=== PATIENT | female | born 1970 | race Caucasian/White ===

== ENCOUNTER 2023-08-07 21:26 | Emergency (ER) | payer MEDICAID ==
[~2023-08-07] VITALS: Ht 157.5 cm; Wt 47.7 kg
[~2023-08-07 21:26] MED LIST: ADV50500 INH; ALBU18HF2 IH; ASPI-612 PO; CARI350T PO; CLOP75TA34 PO; COM5T PO; DIAZ5TAB22 PO; DILT-94 PO; FLUO20CA39 PO; HYDR1TAB PO; TIOT18CA7 IH
[2023-08-07 21:50] VITALS: BP 141/66; PULSE 100; RESP 18; TEMP 98.5; O2SAT 94
[2023-08-07 22:13] LABS: BASOPHILS % (AUTO) 0.2 % (0-1); EOSINOPHILS % (AUTO) 0.1 % (0-6); HEMATOCRIT 40.3 % (35.0-45.0); HEMOGLOBIN 13.7 g/dl (12.0-16.0); LYMPHOCYTES # (AUTO) 0.6 X10'3 (1.1-4.8); LYMPHOCYTES % (AUTO) 4.8 % (21-51); MEAN CORPUSCULAR HEMOGLOBIN 29.9 PG (27.0-31.0); MEAN CORPUSCULAR HGB CONC 33.9 g/dL (33.0-36.5); MEAN CORPUSCULAR VOLUME 88.1 FL (78-98); MEAN PLATELET VOLUME 8.2 FL (7.4-10.4); MONOCYTES # (AUTO) 0.4 X10'3 (0-0.9); MONOCYTES % (AUTO) 2.7 % (2-12); NEUTROPHILS # (AUTO) 12.3 X10'3 (1.8-7.7); NEUTROPHILS % (AUTO) 92.2 % (42-75); PLATELET COUNT 298 X10'3 (140-440); RED BLOOD COUNT 4.58 X10'6 (4.20-5.60); RED CELL DISTRIBUTION WIDTH 13.9 % (11.5-14.5); WHITE BLOOD COUNT 13.3 X10'3 (4.5-11.0)
[2023-08-07 22:49] LABS: PRO BRAIN NATRIURETIC PEPTIDE < 30 PG/ML (0-125)
[2023-08-08] MEDS ORDERED: ONDA4TAB12 PO (05:29)
[2023-08-08] MEDS ORDERED: METR-159 PO (05:29)
[2023-08-08] MEDS ORDERED: LEVO-65 PO (05:29)
== END 2023-08-08 01:33 | disposition left against medical advice (07) ==
LOC: ER 21:27
DX: R07.89 Other chest pain (principal); R11.10 Vomiting, unspecified; R06.00 Dyspnea, unspecified; Z53.21 Procedure and treatment not carried out due to patient leaving prior to being seen by health care provider
CPT/HCPCS: 36415; 83880; 84484; 85025; 93005; 99281

== ENCOUNTER 2023-08-08 02:48 | Emergency (ER) | payer MEDICAID ==
[~2023-08-08] VITALS: Ht 157.5 cm; Wt 47.7 kg
[2023-08-08] MEDS: ondansetron/PF 4mg/2ml inj IV ONE (03:00)
[2023-08-08 03:10] VITALS: TEMP 98.6
[2023-08-08 03:43] LABS: BASOPHILS % (AUTO) 0.2 % (0-1); EOSINOPHILS % (AUTO) 0.3 % (0-6); HEMATOCRIT 38.8 % (35.0-45.0); HEMOGLOBIN 12.9 g/dl (12.0-16.0); LYMPHOCYTES # (AUTO) 1.2 X10'3 (1.1-4.8); LYMPHOCYTES % (AUTO) 9.4 % (21-51); MEAN CORPUSCULAR HEMOGLOBIN 29.4 PG (27.0-31.0); MEAN CORPUSCULAR HGB CONC 33.3 g/dL (33.0-36.5); MEAN CORPUSCULAR VOLUME 88.5 FL (78-98); MEAN PLATELET VOLUME 8.2 FL (7.4-10.4); MONOCYTES # (AUTO) 0.7 X10'3 (0-0.9); MONOCYTES % (AUTO) 5.7 % (2-12); NEUTROPHILS % (AUTO) 84.4 % (42-75); PLATELET COUNT 285 X10'3 (140-440); RED BLOOD COUNT 4.38 X10'6 (4.20-5.60); RED CELL DISTRIBUTION WIDTH 13.7 % (11.5-14.5)
[2023-08-08 03:53] LABS: ALANINE AMINOTRANSFERASE 19 U/L (12-78); ALBUMIN 3.2 G/DL (3.4-5.0); ALKALINE PHOSPHATASE 46 IU/L (46-116); ANION GAP 5 (8-16); ASPARTATE AMINO TRANSFERASE 13 U/L (10-37); BILIRUBIN,TOTAL 0.3 MG/DL (0.1-1.0); BLOOD UREA NITROGEN 7 MG/DL (7-18); BUN/CREATININE RATIO 13.5 (10.0-20.0); CALCIUM 8.9 MG/DL (8.5-10.1); CHLORIDE 98 MMOL/L (99-107); CREATININE 0.52 MG/DL (0.40-0.90); GLUCOSE 134 MG/DL (70-104); LIPASE 39 U/L (16-77); POTASSIUM 3.5 MMOL/L (3.5-5.1); SODIUM 137 MMOL/L (135-145); TOTAL CARBON DIOXIDE 34.3 MMOL/L (24-32); TOTAL PROTEIN 6.5 G/DL (6.4-8.2); eCRCL 94 ML/MIN; eGFR > 90 ML/MIN
[2023-08-08] MEDS: morphine 4 MG/ML inj SYRINge IV ONE (03:58)
[2023-08-08] MEDS: normal saline 1000ml 1,000 ML IV ONE (03:58)
[2023-08-08] MEDS ORDERED: ONDA4TAB12 PO (05:29)
[2023-08-08] MEDS ORDERED: METR-159 PO (05:29)
[2023-08-08] MEDS ORDERED: LEVO-65 PO (05:29)
[2023-08-08] MEDS: metroNIDAZOLE-Flagyl 500mg/NS 100 ML IV STA (05:46)
[2023-08-08] MEDS: levoFLOXACIN 250mg tablet PO ONE (05:46)
[2023-08-08] MEDS: metoclopramide 10mg tablet PO ONE (05:57)
[2023-08-08 07:29] VITALS: BP 137/77; PULSE 82; RESP 16; O2SAT 98
== END 2023-08-08 07:33 | disposition home or self-care (01) ==
LOC: ER 02:49
DX: K52.89 Other specified noninfective gastroenteritis and colitis (principal); K52.9 Noninfective gastroenteritis and colitis, unspecified; E86.0 Dehydration; J44.9 Chronic obstructive pulmonary disease, unspecified; Z88.0 Allergy status to penicillin; Z88.5 Allergy status to narcotic agent; Z79.899 Other long term (current) drug therapy; Z79.82 Long term (current) use of aspirin
CPT/HCPCS: 36415; 74176; 80053; 83690; 85025; 96361; 96365; 96375; 99285; J2270; J3490; J7030